=== PATIENT | female | born 1955 | race African-American/Black ===

== ENCOUNTER 2022-01-14 | Emergency (ER) | payer OTHER, MEDICARE ==
[2022-01-14] MEDS ORDERED: Boostrix 0.5 ML (Tdap) VIAL ONE (14:58)
[2022-01-14] MEDS ORDERED: Ondansetron ODT 4 MG TAB ONE (14:58)
== END 2022-01-14 15:41 | disposition home or self-care (01) ==
CPT/HCPCS: 70450; 90471; 90715; Q0162